=== PATIENT | male | born 1985 | race Caucasian/White ===

== ENCOUNTER 2018-09-24 00:45 | Emergency (ER) | payer MEDICAID ==
[~2018-09-24] VITALS: Ht 177.8 cm; Wt 74.3 kg
[~2018-09-24 00:45] MED LIST: DOXY100T PO; HYDR-3240 PO; SULF1TAB24 PO
--- NOTE | 2018-09-24 00:49 | NUR ---
ATTEMPTED TO TRIAGE PT. [id number]
[2018-09-24 00:54] VITALS: BP 136/89
== END 2018-09-24 02:01 | disposition home or self-care (01) ==
LOC: ED 01:27
DX: K02.9 Dental caries, unspecified (principal); K08.89 Other specified disorders of teeth and supporting structures
CPT/HCPCS: 99283